=== PATIENT | female | born 1970 | race African-American/Black ===

== ENCOUNTER 2023-12-22 09:10 | Emergency (ER) | payer OTHER ==
[2023-12-22 09:24] VITALS: BP 124/83; PULSE 79; RESP 20; TEMP 97.6; BMI 39.3
[2023-12-22] MEDS ORDERED: HIV POST EXPOSURE PROPHYLAXIS KIT PO ONE (09:48)
[2023-12-22] MEDS ORDERED: DIPHTH,PERTUSS(ACELL),TET 0.5 ML DISP.SYRIN IM ONE (09:48)
[2023-12-22] MEDS: DIPHTH,PERTUSS(ACELL),TET 0.5 ML DISP.SYRIN IM ONE (10:06)
[2023-12-22] MEDS: HIV POST EXPOSURE PROPHYLAXIS KIT PO ONE (10:21)
[2023-12-22 10:22] LABS: BASO % 0.5 % (0-2.0); HEMATOCRIT 40.7 % (32.4-45.2); HEMOGLOBIN 13.6 GM/dL (10.7-15.3); LYMPH % 37.4 % (8-40); MCH 30.4 pg (25.7-33.7); MCHC 33.3 g/dl (32.0-36.0); MEAN CELL VOLUME 91.4 fl (80-96); MEAN PLT VOLUME 7.8 fl (7.5-11.1); MONO % 5.2 % (3.8-10.2); NEUT % 51.9 % (42.8-82.8); PLATELET COUNT 262 10^3/uL (134-434); RBC 4.46 M/mm3 (3.60-5.2); RDW 13.9 % (11.6-15.6); WHITE BLOOD COUNT 4.2 K/mm3 (4.0-10.0)
[2023-12-22 10:40] LABS: ALBUMIN 3.6 g/dl (3.4-5.0); CALCIUM 8.8 mg/dL (8.5-10.1)
[2023-12-22 10:43] LABS: CREATININE 1.1 mg/dL (0.55-1.3); PHOSPHOROUS 3.6 mg/dL (2.5-4.9)
[2023-12-22 10:44] LABS: BILIRUBIN,TOTAL 0.7 mg/dL (0.2-1)
[2023-12-22 10:45] LABS: TOT PROT 7.2 g/dl (6.4-8.2)
[2023-12-22 12:55] LABS: HIV INTERPRETATION NEGATIVE (NEGATIVE)
== END 2023-12-22 10:35 | disposition home or self-care (01) ==
LOC: JERFT 09:10
PROC: 3E0234Z Introduction of Serum, Toxoid and Vaccine into Muscle, Percutaneous Approach (ICD-10-PCS; principal; 2023-12-22)
DX: S61.032A Puncture wound without foreign body of left thumb without damage to nail, initial encounter (principal); Z23 Encounter for immunization; W46.0XXA Contact with hypodermic needle, initial encounter; Y99.0 Civilian activity done for income or pay
CPT/HCPCS: 36415; 80053; 82465; 82977; 84100; 85025; 86704; 86803; 87340; 87389; 87517; 90715; 99284-25